=== PATIENT | female | born 1940 | race Caucasian/White ===

== ENCOUNTER → 2017-01-07 | Outpatient (CLI) | payer MEDICARE ==
[~2017-01-07] MED LIST: B12 PO; CALC200T37 PO; LEVO50TA5 PO; LISI5TAB7 PO; OMEG-14 PO; TERB250T3 PO; VITAMIN D PO
[2017-01-07 14:35] LABS: BLOOD UREA NITROGEN 21 mg/dL (7-18)
[2017-01-07 14:37] LABS: ASPARTATE AMINO TRANSFERASE 15 U/L (15-37)
== END | disposition home or self-care (01) ==
LOC: STAR 13:13
PROVIDERS: ATTEND Urology
DX: Z01.818 Encounter for other preprocedural examination (principal); R94.31 Abnormal electrocardiogram [ECG] [EKG]; N20.0 Calculus of kidney
CPT/HCPCS: 36415; 80053; 81001; 87086; 93005

== ENCOUNTER 2017-01-15 05:23 | Day surgery (SDC) | payer MEDICARE ==
[~2017-01-15] VITALS: Ht 157.5 cm; Wt 60.0 kg
[2017-01-15 05:55] VITALS: BP 169/87
[2017-01-15] MEDS ORDERED: LACTATED RINGERS 1,000 ML IV SCH (05:55)
[2017-01-15] MEDS ORDERED: LIDOCAINE 1%, 2ML SQ PRN (06:00)
[2017-01-15] MEDS ORDERED: FENTANYL PF 250 MCG/5ML ONE (07:20)
[2017-01-15] MEDS ORDERED: MIDAZOLAM 1 MG/ML, 2ML ONE (07:20)
[2017-01-15] MEDS ORDERED: EPHEDRINE 50 MG/ML, 1ML ONE (07:57)
[2017-01-15] MEDS ORDERED: METOCLOPRAMIDE 5 MG/ML, 2ML ONE (07:57)
[2017-01-15] MEDS ORDERED: DEXAMETHASONE 4 MG/ML, 1ML ONE (07:57)
[2017-01-15] MEDS ORDERED: ROCURONIUM 10 MG/ML ONE (07:57)
[2017-01-15] MEDS ORDERED: SUCCINYLCHOLINE 20 MG/ML, 10ML ONE (07:57)
[2017-01-15] MEDS ORDERED: ONDANSETRON 2MG/ML, 2ML ONE (07:57)
[2017-01-15] MEDS ORDERED: PROPOFOL 10 MG/ML, 20ML ONE (07:57)
[2017-01-15] MEDS ORDERED: PROMETHAZINE 25 MG/ML, 1ML IV PRN (08:30)
[2017-01-15] MEDS ORDERED: FENTANYL PF 100 MCG/2ML IV PRN (08:30)
[2017-01-15] MEDS ORDERED: METOPROLOL 1 MG/ML, 5ML IV PRN (08:30)
[2017-01-15] MEDS ORDERED: OXYcodone 5 MG/5 ML ORAL.SOL UDC PO PRN (08:30)
[2017-01-15] MEDS ORDERED: LABETALOL 5MG/ML, 20ML IV PRN (08:30)
[2017-01-15] MEDS ORDERED: ONDANSETRON 2MG/ML, 2ML IVPush PRN (08:30)
[2017-01-15] MEDS ORDERED: METOCLOPRAMIDE 5 MG/ML, 2ML IV PRN (08:30)
[2017-01-15] MEDS ORDERED: EPHEDRINE 50 MG/ML, 1ML IVPush PRN (08:30)
[2017-01-15] MEDS ORDERED: HYDROmorphone 1 MG/ML, 1ML IV PRN (08:30)
[2017-01-15] MEDS ORDERED: ALBUTEROL SULFATE 2.5 MG/3 ML NPPB PRN (08:30)
[2017-01-15] MEDS ORDERED: OXYcodone 5 MG/5 ML ORAL.SOL UDC ONE (09:47)
== END 2017-01-15 13:55 ==
LOC: OUT 05:23
PROVIDERS: ATTEND Urology
DX: N20.0 Calculus of kidney (principal); I10 Essential (primary) hypertension; Z87.39 Personal history of other diseases of the musculoskeletal system and connective tissue; Z90.49 Acquired absence of other specified parts of digestive tract; Z98.890 Other specified postprocedural states; Z88.0 Allergy status to penicillin; Z98.84 Bariatric surgery status
CPT/HCPCS: 50590; J0330; J1100; J2250; J2405; J2704; J2765; J3010; J7120